=== PATIENT | male | born 1975 | race Caucasian/White ===

== ENCOUNTER 2016-07-02 18:12 | Emergency (ER) | payer OTHER ==
--- NOTE | 2016-07-02 19:49 | ERNOTE ---
Head Injury HPI - Narrative Date of Service: 07/02/16 - General Injury to: head Time Seen by Provider: 07/02/16 19:22 Source: patient Exam Limitations: no limitations - Immun/Allergies/Home Medications Immunization: IMMUNIZATION HX Immunizations Up to Date Yes History of Influenza Vaccine Yes Hx Pneumococcal Vaccination No Allergies/Adverse Reactions: Allergies Allergy/AdvReac Type Severity Reaction Status Date / Time No Known Allergies Allergy Verified 02/26/16 10:05 Home Medications: HOME MEDICATIONS Duloxetine HCl [Cymbalta] 30 mg PO DAILY 02/06/16 [Last Taken Unknown] Esomeprazole Magnesium [Nexium] 40 mg PO DAILY 02/06/16 [Last Taken Unknown] - History of Present Illness Narrative: Pt. comes in with headache and nausea since 1000 this morning when he hit the top of hit head twice on the corner of the hatchback of his car. Pt. denies any , SOB, CP, blurred, or double vision at this time. Pt. denies any alleviating factors but states that he took advil 4 hours ago without relief. Pt. also denies any aggravating factors. Review of Systems - Review of Systems Constitutional: Present: no symptoms reported. Absent: recent illness, fever, chills, weakness, fatigue, malaise EYE: Present: no symptoms reported. Absent: eye pain, double vision ENT: Present: no symptoms reported. Absent: ear discharge, nose pain, nose congestion, nasal drainage Respiratory: Present: no symptoms reported. Absent: shortness of breath, cough , wheezing Cardiology: Present: no symptoms reported Gastrointestinal/Abdominal: Present: nausea. Absent: vomiting, abdominal pain Genitourinary: Present: no symptoms reported Musculoskeletal: Present: no symptoms reported. Absent: back pain, joint pain Skin: Present: no symptoms reported Neurological: Present: headache. Absent: dizziness/light-headedness, numbness, tingling All Other Systems: All systems neg except as marked - Patient's Past Medical History Patient History - Medical: ADHD, Anxiety, GERD Patient History - Cardiac/Respiratory: No pertinent hx Patient History - Cancer: No Hx of Cancer Patient History - Surgical Procedures: Other Patient History - Other: None - Family History Father Family History - Medical: No pertinent hx Family History - Cardiac/Respiratory: Hypertension, Hyperlipidemia Mother Family History - Medical: , No pertinent hx Family History - Cardiac/Respiratory: No pertinent hx Brother Family History - Medical: No pertinent hx Family History - Cardiac/Respiratory: No pertinent hx Sister Family History - Medical: No pertinent hx, Other Family History - Cardiac/Respiratory: No pertinent hx Grandmother-Paternal Family History - Medical: No pertinent hx Family History - Cardiac/Respiratory: No pertinent hx Grandfather-Paternal Family History - Medical: Other Family History - Cardiac/Respiratory: No pertinent hx Grandmother-Maternal Family History - Medical: No pertinent hx Family History - Cardiac/Respiratory: No pertinent hx - Social History Living Situations: spouse Abuse History: No History of abuse Psych History: Hx of Anxiety, Hx of Depression Smoking Status: Never smoker Alcohol Use: heavy Drug Use: none - Immunizations Immunizations Up to Date: Yes Hx Pneumococcal Vaccination: No History of Influenza Vaccine: Yes Physical Exam - Physical Exam General Appearance: Present: wd/wn, alert, no apparent distress Eye Exam: Normal inspection: bilateral, PERRL: bilateral, EOMI: bilateral Ears, Nose, Throat: Present: normal ENT inspection, hearing grossly normal, normal pharynx Neck: Present: normal inspection, nontender. Absent: lymphadenopathy (R), lymphadenopathy (L) Respiratory: Present: no respiratory distress, normal breath sounds, no accessory muscle use, chest nontender, lungs clear Cardiovascular/Chest: Present: regular rate, rhythm, no murmur, normal peripheral pulses Back Exam: Present: normal inspection, normal range of motion, no vertebral tenderness Extremity Exam: Present: normal inspection Neurological Exam: Present: alert, oriented, normal mood/affect, no motor/ sensory deficits, branch mechanic II-XII nml as tested, normal cerebellar test Skin Exam: Present: normal color, warm/dry, other - notable lump to top of head 3cm in diameter. Absent: pallor, skin rash ED Progress - Vital Signs Patient's Vital Signs:: I have reviewed the patient's vital signs. Vital Signs: Vital Signs 07/02/16 18:48 Temperature 37.0 C Pulse Rate 69 Respiratory 16 Rate Blood Pressure 121/81 O2 Sat by Pulse 100 Oximetry - CT/Ultrasound CT/Ultrasound Narrative: negative CT of the brain - Progress/Reassessment Chief Complaint: Head Injury Departure Clinical Impression: Closed head injury Qualifiers: Encounter type: initial encounter Qualified Code(s): S09.90XA - Unspecified injury of head, initial encounter - Departure Disposition: Home self-care Condition: Good Instructions: Concussion, Adult, [id number] Additional Instructions: Please follow up woith primary provider as needed for worsening symptoms. Referrals: Stewart Rey DO [Primary Care Provider] -
[2016-07-02 22:22] VITALS: BP 121/85
== END 2016-07-02 21:08 | disposition home or self-care (01) ==
LOC: ER 18:12
DX: S09.90XA Unspecified injury of head, initial encounter (principal); W22.8XXA Striking against or struck by other objects, initial encounter